=== PATIENT | male | born 1980 ===

== ENCOUNTER 2024-04-01 11:27 | Day surgery (SDC) | payer OTHER ==
[~2024-04-01] VITALS: Ht 177.8 cm; Wt 96.9 kg
[~2024-04-01 11:27] MED LIST: FAMO20 PO; ZESTORETIC 20-121 EA PO; propofoL 50 ML IV ONE
[2024-04-01] MEDS ORDERED: Lactated Ringer's 1,000 ML IV ONE (14:36)
== END 2024-04-01 16:03 | disposition home or self-care (01) ==
LOC: ORSCSDS 11:27
PROVIDERS: Internal Medicine Gastroenterology
PROC: 0DJD8ZZ Inspection of Lower Intestinal Tract, Via Natural or Artificial Opening Endoscopic (ICD-10-PCS; principal; 2024-04-01 14:00)
PROC: 0DB68ZX Excision of Stomach, Via Natural or Artificial Opening Endoscopic, Diagnostic (ICD-10-PCS; principal; 2024-04-01 14:00)
DX: R93.3 Abnormal findings on diagnostic imaging of other parts of digestive tract (principal); Z87.19 Personal history of other diseases of the digestive system; Z79.899 Other long term (current) drug therapy
CPT/HCPCS: 87071; 87075; 87205; J2704